=== PATIENT | female | born 1960 | race African-American/Black ===

== ENCOUNTER 2019-09-23 11:35 | Emergency (ER) | payer MEDICAID ==
[~2019-09-23] VITALS: Ht 162.6 cm; Wt 73.0 kg
[2019-09-23 12:15] VITALS: BP 122/86
[2019-09-23] MEDS ORDERED: CYCLOBENZAPRINE 10MG TABLET PO ONE (13:00)
[2019-09-23] MEDS ORDERED: KETOROLAC 30MG/ML VIAL IM ONE (13:00)
== END 2019-09-23 13:56 | disposition home or self-care (01) ==
LOC: ER 11:35
DX: M54.41 Lumbago with sciatica, right side (principal); I10 Essential (primary) hypertension; E11.9 Type 2 diabetes mellitus without complications; Z88.0 Allergy status to penicillin
CPT/HCPCS: 96372; 99283; J1885

== ENCOUNTER 2021-02-21 08:31 | Emergency (ER) | payer MEDICAID, OTHER ==
[~2021-02-21] VITALS: Ht 160 cm; Wt 75.0 kg
[2021-02-21] MEDS ORDERED: ONDANSETRON HCL 4MG/2ML INJ IV STA (08:54)
[2021-02-21] MEDS ORDERED: MORPHINE SULFATE 4 MG/ML CPJ (NOT FOR IM USE) IV STA (08:54)
[2021-02-21] MEDS ORDERED: SODIUM CHLORIDE 0.9% 1,000 ML IV ONE (09:00)
[2021-02-21 09:15] LABS: BASOPHILS % 0.8 % (0.0-2.0); EOSINOPHILS % 2.4 % (0.0-5.0); HEMATOCRIT. 33.6 % (36.0-48.0); HEMOGLOBIN. 11.7 g/dL (12.0-16.0); LYMPHOCYTES % 30.1 % (20.0-50.0); MEAN CORPUSCULAR HEMOGLOBIN 32.3 pg (28.0-32.0); MEAN CORPUSCULAR VOLUME 92.4 fL (81.0-99.0); MEAN PLATELET VOLUME 6.8 fl (7.4-10.4); NEUTROPHILS % 57.7 % (40.0-76.0); PLATELET 512 x1000/uL (130-400); RED BLOOD CELL COUNT 3.63 mill/uL (4.2-5.4); RED CELL DISTRIBUTION WIDTH 13.3 % (11.6-14.6)
[2021-02-21 09:17] LABS: CHLORIDE 105 mEq/L (98-107)
[2021-02-21 09:18] LABS: CLARITY URINE CLOUDY (CLEAR); COLOR URINE YELLOW (YELLOW); KETONES URINE TRACE (NEGATIVE); LEUKOCYTE ESTERASE URINE NEGATIVE (NEGATIVE); NITRITE URINE NEGATIVE (NEGATIVE); OCCULT BLOOD URINE 1+ (NEGATIVE); PH URINE 5.5 (4.5-8.0); PROTEIN URINE 4+ (NEGATIVE); SPECIFIC GRAVITY URINE 1.029 (1.005-1.030); UROBILINOGEN URINE 0.2 E.U./dL (0.2-1.0)
[2021-02-21 09:21] LABS: ETHANOL BLOOD < 10 mg/dL
[2021-02-21 10:17] LABS: *BARBITURATES SCREEN URINE NEGATIVE (NEGATIVE); CANNABINOID URINE SCREEN NEGATIVE (NEGATIVE); PHENCYCLIDINE URINE SCREEN NEGATIVE (NEGATIVE)
[2021-02-21 10:18] LABS: *AMPHETAMINES SCREEN URINE NEGATIVE (NEGATIVE); *BENZODIAZEPINES SCREEN URINE NEGATIVE (NEGATIVE); *COCAINE SCREEN URINE NEGATIVE (NEGATIVE)
[2021-02-21 10:19] LABS: METHADONE URINE SCREEN NEGATIVE (NEGATIVE); OPIATES URINE SCREEN PRESUMTIVE POSITIVE (NEGATIVE)
[2021-02-21] MEDS ORDERED: KETOROLAC 30MG/ML VIAL IV ONE (11:15)
[2021-02-21] MEDS ORDERED: OMEP20CA14 MT (12:51)
[2021-02-21] MEDS ORDERED: TRAM50TA MT (12:51)
[2021-02-21] MEDS ORDERED: ONDA4TAB5 MT (12:51)
[2021-02-21 12:53] VITALS: BP 136/76
== END 2021-02-21 13:17 | disposition home or self-care (01) ==
LOC: ER 08:31
DX: K80.50 Calculus of bile duct without cholangitis or cholecystitis without obstruction (principal); R10.13 Epigastric pain; R11.10 Vomiting, unspecified; E11.65 Type 2 diabetes mellitus with hyperglycemia; I10 Essential (primary) hypertension; Z90.81 Acquired absence of spleen; Z88.0 Allergy status to penicillin
CPT/HCPCS: 36415; 71045; 76705; 80053; 80305; 80320; 81003; 83690; 85025; 93005; 96361; 96374; 96375; 99285; J1885; J2270; J2405; J7030; G0480

== ENCOUNTER 2021-02-28 09:57 | Inpatient (IN) | payer OTHER ==
[~2021-02-28] VITALS: Ht 160 cm; Wt 81.6 kg
[~2021-02-28 09:57] MED LIST: OMEP20CA14 MT; ONDA4TAB5 MT; TRAM50TA MT
[2021-02-28] MEDS ORDERED: MORPHINE SULFATE 4 MG/ML CPJ (NOT FOR IM USE) IV STA (10:35)
[2021-02-28 11:01] LABS: BASOPHILS % 0.8 % (0.0-2.0); EOSINOPHILS % 2.2 % (0.0-5.0); HEMATOCRIT. 32.7 % (36.0-48.0); HEMOGLOBIN. 11.4 g/dL (12.0-16.0); LYMPHOCYTES % 29.9 % (20.0-50.0); MEAN CORPUSCULAR HEMOGLOBIN 32.2 pg (28.0-32.0); MEAN CORPUSCULAR VOLUME 92.6 fL (81.0-99.0); MEAN PLATELET VOLUME 6.9 fl (7.4-10.4); MONOCYTES % 9.6 % (2.0-8.0); NEUTROPHILS % 57.5 % (40.0-76.0); PLATELET 458 x1000/uL (130-400); RED BLOOD CELL COUNT 3.53 mill/uL (4.2-5.4); RED CELL DISTRIBUTION WIDTH 13.5 % (11.6-14.6)
[2021-02-28 11:04] LABS: CHLORIDE 106 mEq/L (98-107)
[2021-02-28 11:10] LABS: INR 0.9; PROTHROMBIN TIME 9.9 sec (9.6-11.0)
[2021-02-28] MEDS ORDERED: MORPHINE SULFATE 4 MG/ML CPJ (NOT FOR IM USE) IV ONE (12:45)
[2021-02-28 12:50] LABS: CLARITY URINE CLOUDY (CLEAR); COLOR URINE YELLOW (YELLOW); KETONES URINE NEGATIVE (NEGATIVE); LEUKOCYTE ESTERASE URINE TRACE (NEGATIVE); NITRITE URINE NEGATIVE (NEGATIVE); OCCULT BLOOD URINE 1+ (NEGATIVE); PH URINE 6.5 (4.5-8.0); PROTEIN URINE 4+ (NEGATIVE); SPECIFIC GRAVITY URINE 1.019 (1.005-1.030); UROBILINOGEN URINE 0.2 E.U./dL (0.2-1.0)
[2021-02-28] MEDS ORDERED: LEVOFLOXACIN 750MG PREMIX 150 ML IV ONE (13:30)
[2021-02-28] MEDS ORDERED: METRONIDAZOLE 500 MG PREMIX 100 ML IV ONE (13:30)
[2021-02-28] MEDS ORDERED: CLONIDINE 0.1MG TABLET PO PRN (13:45)
[2021-02-28] MEDS ORDERED: IPRATROPIUM/ALBUTEROL 0.5-3(2.5)MG/3ML NEB HHN PRN (13:45)
[2021-02-28] MEDS ORDERED: LEVOFLOXACIN 500MG PREMIX 100 ML IV NR (14:00)
[2021-02-28] MEDS: METRONIDAZOLE 500 MG PREMIX 100 ML IV SCH ×2 (15:41→22:16)
[2021-02-28] MEDS: SODIUM CHLORIDE 0.9% 1,000 ML IV SCH (15:42)
[2021-02-28] MEDS: MORPHINE SULFATE 2 MG/ML CPJ (NOT FOR IM USE) IV PRN ×2 (17:13→22:01)
[2021-02-28] MEDS ORDERED: DEXTROSE 50% WATER 50ML SYRINGE IV PRN (18:45)
[2021-02-28] MEDS: INSULIN LISPRO 100 UNITS/ML SUBCUT SCH (21:00)
[2021-02-28] MEDS: BLOOD SUGAR DIAGNOSTIC STRIP TEST SCH (21:51)
[2021-03-01] MEDS: SODIUM CHLORIDE 0.9% 1,000 ML IV SCH ×2 (03:05→18:16)
[2021-03-01] MEDS: ONDANSETRON HCL 4MG/2ML INJ IV PRN (03:21)
[2021-03-01] MEDS: MORPHINE SULFATE 2 MG/ML CPJ (NOT FOR IM USE) IV PRN ×5 (03:21→23:07)
[2021-03-01 03:29] VITALS: BP 102/52
[2021-03-01 04:00] VITALS: BP 102/52
[2021-03-01 06:31] LABS: BASOPHILS % 0.5 % (0.0-2.0); EOSINOPHILS % 2.7 % (0.0-5.0); HEMATOCRIT. 32.4 % (36.0-48.0); HEMOGLOBIN. 11.2 g/dL (12.0-16.0); LYMPHOCYTES % 32.4 % (20.0-50.0); MEAN CORPUSCULAR HEMOGLOBIN 32.1 pg (28.0-32.0); MEAN CORPUSCULAR VOLUME 92.5 fL (81.0-99.0); MEAN PLATELET VOLUME 7.1 fl (7.4-10.4); MONOCYTES % 11.4 % (2.0-8.0); PLATELET 453 x1000/uL (130-400); RED CELL DISTRIBUTION WIDTH 13.5 % (11.6-14.6)
[2021-03-01 06:59] LABS: CHLORIDE 111 mEq/L (98-107)
[2021-03-01] MEDS: METRONIDAZOLE 500 MG PREMIX 100 ML IV SCH ×2 (07:00→21:10)
[2021-03-01] MEDS: BLOOD SUGAR DIAGNOSTIC STRIP TEST SCH ×4 (07:02→21:16)
[2021-03-01 07:20] LABS: LDL CHOLESTEROL 180 mg/dL (5-100)
[2021-03-01 07:21] LABS: HDL CHOLESTEROL 44 mg/dL (40-59)
[2021-03-01] MEDS: INSULIN LISPRO 100 UNITS/ML SUBCUT SCH ×4 (07:40→21:05)
[2021-03-01 08:17] VITALS: BP 112/54
[2021-03-01 11:54] VITALS: BP 113/65
[2021-03-01] MEDS: LEVOFLOXACIN 250MG PREMIX 50 ML IV SCH (12:41)
[2021-03-01] MEDS: HYDROCODONE/ACETAMINOPHEN 5/325MG TABLET PO PRN ×2 (15:23→20:45)
[2021-03-01 15:55] VITALS: BP 111/63
[2021-03-01 20:00] VITALS: BP 142/76
[2021-03-01] MEDS: ATORVASTATIN CALCIUM 40MG TABLET PO SCH (20:44)
[2021-03-02] VITALS: BP 119/57
[2021-03-02] MEDS: ONDANSETRON HCL 4MG/2ML INJ IV PRN ×3 (02:49→18:21)
[2021-03-02 04:00] VITALS: BP 144/72
[2021-03-02] MEDS: MORPHINE SULFATE 2 MG/ML CPJ (NOT FOR IM USE) IV PRN ×5 (04:07→21:42)
[2021-03-02] MEDS: METRONIDAZOLE 500 MG PREMIX 100 ML IV SCH ×4 (05:58→21:19)
[2021-03-02 06:00] VITALS: BP 132/74
[2021-03-02] MEDS: SODIUM CHLORIDE 0.9% 1,000 ML IV SCH ×2 (06:03→18:21)
[2021-03-02] MEDS: INSULIN LISPRO 100 UNITS/ML SUBCUT SCH ×4 (06:38→21:00)
[2021-03-02 06:40] LABS: BASOPHILS % 0.7 % (0.0-2.0); EOSINOPHILS % 3.6 % (0.0-5.0); HEMATOCRIT. 31.3 % (36.0-48.0); HEMOGLOBIN. 10.7 g/dL (12.0-16.0); LYMPHOCYTES % 32.5 % (20.0-50.0); MEAN CORPUSCULAR HEMOGLOBIN 31.2 pg (28.0-32.0); MEAN CORPUSCULAR VOLUME 91.5 fL (81.0-99.0); MEAN PLATELET VOLUME 7.2 fl (7.4-10.4); MONOCYTES % 13.1 % (2.0-8.0); NEUTROPHILS % 50.1 % (40.0-76.0); PLATELET 472 x1000/uL (130-400); RED BLOOD CELL COUNT 3.42 mill/uL (4.2-5.4); RED CELL DISTRIBUTION WIDTH 13.3 % (11.6-14.6)
[2021-03-02] MEDS: BLOOD SUGAR DIAGNOSTIC STRIP TEST SCH ×4 (06:40→21:18)
[2021-03-02 06:57] LABS: CHLORIDE 110 mEq/L (98-107)
[2021-03-02 07:07] LABS: T4 FREE 0.82 ng/dL (0.76-1.46)
[2021-03-02 08:00] VITALS: BP 129/62
[2021-03-02 12:00] VITALS: BP 145/83
[2021-03-02] MEDS: LEVOFLOXACIN 250MG PREMIX 50 ML IV SCH (13:45)
[2021-03-02 20:00] VITALS: BP 140/80
[2021-03-02] MEDS: DIPHENHYDRAMINE 50MG/ML VIAL IV PRN (21:14)
[2021-03-02] MEDS: ATORVASTATIN CALCIUM 40MG TABLET PO SCH (21:14)
[2021-03-03] VITALS: BP 148/78
[2021-03-03] MEDS: MORPHINE SULFATE 2 MG/ML CPJ (NOT FOR IM USE) IV PRN ×3 (01:47→10:04)
[2021-03-03] MEDS: DIPHENHYDRAMINE 50MG/ML VIAL IV PRN ×2 (01:47→10:16)
[2021-03-03 04:00] VITALS: BP 158/88
[2021-03-03] MEDS: SODIUM CHLORIDE 0.9% 1,000 ML IV SCH (05:45)
[2021-03-03] MEDS: METRONIDAZOLE 500 MG PREMIX 100 ML IV SCH (05:45)
[2021-03-03] MEDS: INSULIN LISPRO 100 UNITS/ML SUBCUT SCH ×2 (06:04→12:40)
[2021-03-03] MEDS: BLOOD SUGAR DIAGNOSTIC STRIP TEST SCH ×2 (06:04→12:54)
[2021-03-03] MEDS: ONDANSETRON HCL 4MG/2ML INJ IV PRN (06:09)
[2021-03-03 07:12] LABS: CHLORIDE 108 mEq/L (98-107)
[2021-03-03 07:19] LABS: BASOPHILS % 0.5 % (0.0-2.0); EOSINOPHILS % 1.9 % (0.0-5.0); HEMATOCRIT. 29.6 % (36.0-48.0); HEMOGLOBIN. 10.2 g/dL (12.0-16.0); LYMPHOCYTES % 26.6 % (20.0-50.0); MEAN CORPUSCULAR HEMOGLOBIN 31.8 pg (28.0-32.0); MEAN CORPUSCULAR VOLUME 92.3 fL (81.0-99.0); MEAN PLATELET VOLUME 6.8 fl (7.4-10.4); MONOCYTES % 13.4 % (2.0-8.0); NEUTROPHILS % 57.6 % (40.0-76.0); PLATELET 432 x1000/uL (130-400); RED BLOOD CELL COUNT 3.21 mill/uL (4.2-5.4); RED CELL DISTRIBUTION WIDTH 13.2 % (11.6-14.6)
[2021-03-03 08:00] VITALS: BP 143/76
[2021-03-03] MEDS ORDERED: HYDR-4001 MT (09:00)
[2021-03-03] MEDS ORDERED: ONDA4TAB5 MT (09:00)
[2021-03-03] MEDS ORDERED: ATOR40TA70 MT (09:00)
[2021-03-03] MEDS ORDERED: GEMF600T MT (09:00)
[2021-03-03 12:00] VITALS: BP 135/71
[2021-03-03 13:04] VITALS: BP 135/71
[2021-03-04] MEDS ORDERED: LEVOFLOXACIN 500MG PREMIX 100 ML IV SCH (11:00)
== END 2021-03-03 13:52 | disposition home or self-care (01) ==
LOC: ER 09:57 → 8WST 13:07 → EDBEDREQTM 13:16 → EDBEDREQ 13:16 → CANRESERV 22:21 → ENRESERV 22:21 → CANRESERV 22:57 → ENRESERV 22:57
PROVIDERS: ADMIT Internal Medicine; ATTEND Internal Medicine
DX: K80.20 Calculus of gallbladder without cholecystitis without obstruction (principal); E43 Unspecified severe protein-calorie malnutrition; E11.65 Type 2 diabetes mellitus with hyperglycemia; I10 Essential (primary) hypertension; E03.9 Hypothyroidism, unspecified; E78.5 Hyperlipidemia, unspecified; Z79.4 Long term (current) use of insulin; Z79.899 Other long term (current) drug therapy; Z82.49 Family history of ischemic heart disease and other diseases of the circulatory system; Z90.710 Acquired absence of both cervix and uterus; Z90.81 Acquired absence of spleen; Z83.3 Family history of diabetes mellitus; Z88.0 Allergy status to penicillin; Z68.31 Body mass index [BMI] 31.0-31.9, adult; R80.9 Proteinuria, unspecified
CPT/HCPCS: 36415; 76705; 78227; 80048; 80053; 80061; 81003; 82962; 83036; 84439; 84443; 84481; 85025; 93970; 99285; A9537; J1200; J1815; J1956; J2270; J2405; J3490

== ENCOUNTER 2021-03-13 11:34 | Emergency (ER) | payer OTHER ==
[~2021-03-13] VITALS: Ht 160 cm; Wt 82.0 kg
[~2021-03-13 11:34] MED LIST changes: +ATOR40TA70 MT; +GEMF600T MT; +HYDR-4001 MT
[2021-03-13] MEDS ORDERED: HYDROCODONE/ACETAMINOPHEN 5/325MG TABLET PO STA (12:21)
[2021-03-13 12:43] LABS: BASOPHILS % 1.1 % (0.0-2.0); HEMATOCRIT. 35.5 % (36.0-48.0); HEMOGLOBIN. 12.5 g/dL (12.0-16.0); LYMPHOCYTES % 25.9 % (20.0-50.0); MEAN CORPUSCULAR HEMOGLOBIN 32.5 pg (28.0-32.0); MEAN CORPUSCULAR VOLUME 92.8 fL (81.0-99.0); MEAN PLATELET VOLUME 6.8 fl (7.4-10.4); MONOCYTES % 7.2 % (2.0-8.0); NEUTROPHILS % 63.8 % (40.0-76.0); PLATELET 488 x1000/uL (130-400); RED BLOOD CELL COUNT 3.83 mill/uL (4.2-5.4); RED CELL DISTRIBUTION WIDTH 13.2 % (11.6-14.6)
[2021-03-13 12:52] LABS: CHLORIDE 104 mEq/L (98-107)
[2021-03-13] MEDS ORDERED: INSULIN REGULAR (HUMULIN R) UD 100 UNITS/ML SYR SUBCUT ONE (13:30)
[2021-03-13] MEDS ORDERED: INSULIN REGULAR (HUMULIN R) 300UNITS/3ML VIAL SUBCUT SCH (14:00)
[2021-03-13] MEDS ORDERED: HYDR-4001 MT (14:18)
[2021-03-13 15:34] VITALS: BP 164/87
== END 2021-03-13 15:37 | disposition home or self-care (01) ==
LOC: ER 11:34
DX: K80.50 Calculus of bile duct without cholangitis or cholecystitis without obstruction (principal); E11.65 Type 2 diabetes mellitus with hyperglycemia; I10 Essential (primary) hypertension; Z88.0 Allergy status to penicillin; Z79.899 Other long term (current) drug therapy; Z90.81 Acquired absence of spleen; Z90.710 Acquired absence of both cervix and uterus
CPT/HCPCS: 36415; 76705; 80053; 82962; 83690; 85025; 96372; 99284; J1815